=== PATIENT | female | born 1985 | race Two or more races ===

== ENCOUNTER 2021-08-12 15:27 | Outpatient (REF) | payer OTHER, SELFPAY ==
--- NOTE | ~2021-08-12 | MR_ITS ---
EXAMINATION: MR PELVIS WITHOUT AND WITH CONTRAST CLINICAL INFORMATION: Assess fibroid uterus COMPARISON: None TECHNIQUE: Multiplanar multisequence MRI of the pelvis before and after 7.5 mL injection of intravenous Gadavist FINDINGS: The uterus is notably enlarged measuring up to approximately 16.5 cm longitudinal 12.5 cm AP and 16.7 cm transverse. It is anteverted but retroflexed. Central endometrial complex is notably distorted due to multiple myometrial mass rounded masses most consistent with fibroids. These lesions are probably decreased on T1 T2-weighted imaging. There are notably hyperenhancing enhancing similar to background myometrium. These fibroids appear to be all myometrial. Largest is within the fundus extending right of midline measuring up to 10.7 x 5.3 x 14.4 cm. Numerous other fibroids are present second largest measuring 5.6 x 4.4 x 9.7 cm within the posterior myometrium to the left of midline. Endometrium and junctional zone is within normal limits for patient's age. The bladder is decompressed and there is no adnexal mass noted. Dominant follicle left ovary measuring approximately 2.4 cm incidentally noted. No free fluid or pathologic lymphadenopathy. There is no presacral abnormality. Bony structures appear unremarkable. No gross hydronephrosis MR/MR pelvis wo/w con IMPRESSION: Markedly enlarged fibroid uterus with hypervascular myometrial fibroids as detailed above.
== END 2021-08-12 15:28 | disposition home or self-care (01) ==
LOC: HO.MRI 15:27
PROVIDERS: Visit Provider Student in an Organized Health Care Education/Training Program
DX: D21.9 Benign neoplasm of connective and other soft tissue, unspecified (principal)
CPT/HCPCS: 72197; A9585